=== PATIENT | female | born 1980 | race Caucasian/White ===

== ENCOUNTER 2016-12-10 08:56 | Emergency (ER) | payer SELFPAY ==
[2016-12-10 09:38] LABS: HEMATOCRIT 43.1 % (36.0-48.0); HEMOGLOBIN 15.3 g/dL (12.0-16.0); MEAN CORPUS. HGB CONCENTRATION 35.4 g/dL (32.0-36.0); MEAN CORPUSCULAR HEMOGLOBIN 32.5 pg (29.0-35.0); MEAN PLATELET VOLUME 7.2 fL (7.4-10.4); PLATELET COUNT 318 X 10^3uL (130-440); RED CELL DISTRIBUTION WIDTH 13.1 % (11.5-14.5); WHITE BLOOD COUNT 6.2 X 10^3uL (3.9-10.7)
[2016-12-10 09:39] LABS: BASOPHILS 0.7 % (0.0-2.0); EOSINOPHILS 1.9 % (0.0-6.0); EOSINOPHILS# 0.1 X 10^3uL (0.0-0.4); LYMPHOCYTES 37.6 % (20.0-40.0); LYMPHOCYTES# 2.3 X 10^3uL (0.8-3.8); MONOCYTES 7.4 % (2.0-10.0); MONOCYTES# 0.5 X 10^3uL (0.2-1.0); NEUTROPHILS 52.4 % (54.0-75.0); NEUTROPHILS# 3.2 X 10^3uL (2.6-6.7)
[2016-12-10 09:46] LABS: BLOOD UREA NITROGEN 8 mg/dL (7-17); CALCIUM 9.7 mg/dL (8.4-10.2); CHLORIDE 104 mmol/L (98-107); EST GLOMERULAR FILTRATION RATE > 60 mL/min; GLUCOSE 104 mg/dL (70-100); POTASSIUM 3.8 mmol/L (3.5-5.1); SODIUM 140 mmol/L (137-145)
[2016-12-10 09:55] LABS: TROPONIN I < 0.012 ng/mL (0.00-0.034)
[2016-12-10] MEDS ORDERED: KETOROLAC TROMETHAMINE 30 MG/ML VIAL ONE (11:27)
--- NOTE | 2016-12-10 11:48 | ER PHYSICIAN DOCUMENTATION ---
Physician Documentation [facility] Name:Tania Alexis Age:36 yrs Sex:Female :1980 Arrival Date:12/10/2016 Time:08:56 Bed3 Private MD:No PCP, Identified ED PhysicianHaroonNabeel Disposition: 12/10 11:31 Critical Care: not applicable. cd Disposition: 12/10/16 11:33 Discharged to Home/Self Care. Impression: Dysfunctional Uterine Bleeding (DUB), Dehydration, Hyperventilation Syndrome. - Condition is Good. - Discharge Instructions: DEHYDRATION (4y-Adult), DYSFUNCTIONAL UTERINE BLEEDING, Anguish - HYPERVENTILATION SYNDROME. - Medical Reconciliation form form. - Follow up: Jun Lafleur MD; When: 4- 6 days; Reason: Recheck today's complaints, Continuance of care. - Problem is new. - Symptoms are resolved. - Notes: Drink 2 - 3 quarts of water every day for 2 - 3 days. Take Ibuprofen 600mg by mouth every 6 hours with food for cramps. Take Trovera 10mg by mouth every day for 10 days to stop the vaginal bleeding Follow up with Dr. Jun Lafleur, PERMASTONE INSTALLER Physician, in 4 - 6 days. HPI: 09:00 This 36 yrs old Female presents to ER via Private Vehicle with complaints of cd Chest Pressure. 09:00 The patient or guardian reports chest pain that is located primarily in the substernal cd area. The pain does not radiate. There has been no movement of pain. Associated signs and symptoms: Pertinent positives: dizziness, nausea, shortness of breath, weakness and vaginal intermittent vaginal bleeding for one month., Pertinent negatives: abdominal pain, cough, lower extremity pain, lower extremity swelling, palpitations. The chest pain is described as aching. Duration: The patient or guardian reports multiple episodes, that wax and wane. Modifying factors: The symptoms are alleviated by nothing. the symptoms are aggravated by emotionally stressful situations. Severity of pain: At its worst the pain was mild in the emergency department the pain is unchanged. Risk factors for coronary artery disease include: This patient has a family history of coronary artery disease. 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 None - PMHx: Bicornute uterus; superficial blood clot; - PSHx: endometriosis ; laparoscopy x3 ; - Tetanus: unknown. - Ebola Screening: : Patient negative for fever greater than or equal to 101.5 degrees Fahrenheit, and additional compatible Ebola Virus Disease symptoms. Patient denies exposure to infectious person. Patient denies travel to an Ebola-affected area in the 21 days before illness onset. No symptoms or risks identified at this time. . - Immunization history: Flu Vaccine None. - Social history: Smoking status: Patient uses tobacco products, current every day smoker. ROS: 09:35 ENT: Negative for injury, pain, epistaxis and discharge. cd 09:35 Neck: Negative for injury, pain, stiffness and swelling. cd 09:35 Constitutional: Positive for poor PO intake, Negative for chills, fever. 09:35 Cardiovascular: Positive for chest pain, Negative for edema, palpitations. 09:35 Respiratory: Positive for shortness of breath, Negative for cough, dyspnea on exertion, hemoptysis, pleurisy. 09:35 Abdomen/GI: Positive for nausea, anorexia, Negative for abdominal pain, vomiting, diarrhea, hematemesis, black/tarry stool, rectal bleeding. 09:35 : Positive for vaginal bleeding, Negative for urinary symptoms, urinary frequency, pelvic pain, flank pain, burning with urination, foul smelling urine. 09:35 Psych: Positive for anxiety, hyperventilation on arrival to ED. 09:35 All other systems are negative. Exam: ENT: Nares patent. No nasal discharge, no septal abnormalities noted. Tympanic membranes are normal and external auditory canals are clear. Oropharynx with no redness, swelling, or masses, exudates, or evidence of obstruction, uvula midline. Mucous membranes dry Neck: Trachea midline, no thyromegaly or masses palpated, and no cervical lymphadenopathy. Supple, full range of motion without nuchal rigidity, or vertebral point tenderness. No Meningismus. Skin: Warm, dry with normal turgor. Normal color with no rashes, no lesions, and no evidence of cellulitis. MS/ Extremity: Pulses equal, no cyanosis. Neurovascular intact. Full, normal range of motion. 09:35 Neuro: Awake and alert, GCS 15, oriented to person, place, time, and situation. cd Cranial nerves II-XII grossly intact. Motor strength 5/5 in all extremities. Sensory grossly intact. Cerebellar exam normal. Normal gait. 09:35 Constitutional: The patient appears alert, awake, non-diaphoretic, non-toxic, well developed, well nourished, anxious, in obvious distress, mildly distressed. 09:35 Cardiovascular: Rate: normal, Rhythm: regular, Pulses: no pulse deficits are appreciated, Heart sounds: normal. 09:35 Respiratory: the patient does not display signs of respiratory distress, Respirations: shallow respirations, that is moderate, tachypnea, that is moderate, Breath sounds: are normal, clear throughout. 09:35 Abdomen/GI: Inspection: abdomen appears normal, Bowel sounds: normal, Palpation: abdomen is soft and non-tender. 09:35 Back: CVA tenderness, is absent. 09:35 Psych: Behavior/mood is pleasant, cooperative, anxious, Affect is flat. 09:35 Chest/axilla: Normal chest wall appearance and motion. Nontender with no deformity. cd No lesions are appreciated. 09:35 : Pelvic Exam: External exam: is normal, Speculum exam: scant bleeding, no cervicitis, os that is closed, no tissue in cervix is seen, no tissue in vagina is seen, bimanual exam reveals no cervical motion tenderness, normal sized uterus, no uterine tenderness, no adnexa tenderness or masses bilaterally, the nurse was present for the exam. Vital Signs: 08:56 BP 113 / 74; Pulse 80; Resp 26; Temp 97.8(O); Pulse Ox 96% on R/A; Weight 65.77 kg; cb Height 5 ft. 11 in. (180.34 cm); Pain 2/10; 09:31 Pulse 65 MON; Resp 17; Pulse Ox 94% ; cb 09:33 BP 96 / 81 (auto/); cb 10:00 BP 91 / 66 (auto/); cb 10:01 Pulse 72 MON; Resp 23; Pulse Ox 94% ; cb 10:36 Pulse 66 MON; Resp 14; Pulse Ox 93% ; cb 10:56 Pulse 64 MON; Resp 25; Pulse Ox 94% ; cb 11:02 BP 99 / 70; Pulse 72; Pulse Ox 97% on R/A; cb 08:56 Body Mass Index 20.22 (65.77 kg, 180.34 cm) cb [place] Coma Score: 09:35 Eye Response: spontaneous(4). Verbal Response: oriented(5). Motor Response: obeys cd commands(6). Total: 15. MDM: 09:00 ECG:. cd 09:05 Data interpreted: equipment man: rate is 74 beats/min, rhythm is normal sinus rhythm, cd regular, with no ectopy, Interpretation: normal rate, normal rhythm, Pulse oximetry: on room air is 99 %. Interpretation: Hyperventilation. 09:09 Patient medically screened. cd 09:20 Differential diagnosis: acute myocardial infarction, acute pericarditis, anxiety, cd coronary artery disease chest wall pain, cholecystitis, esophagitis, gastroesophageal reflux disease (GERD). 09:20 The patient was not given aspirin in the Emergency Department due to not indicated. cd Patient did not receive fibrinolytic due to not indicated. DEEPA Risk Score: TOTAL SCORE = 0. 11:30 Data reviewed: vital signs, nurses notes, old medical records, lab test result(s), EKG, cd radiologic studies, and as a result, I will discharge patient. 11:35 Counseling: I had a detailed discussion with the patient and/or guardian regarding: the cd historical points, exam findings, and any diagnostic results supporting the discharge/admit diagnosis, lab results, radiology results, the need for outpatient follow up, for a recheck, with the patient's primary care provider, to return to the emergency department if symptoms worsen or persist or if there are any questions or concerns that arise at home. Response to treatment: the patient's symptoms have markedly improved after treatment, the patient's condition has returned to base line, the patient is now symptom free, patient is well hydrated. and as a result, I will discharge patient. 12:28 EKG attached 12/10 09:40 Order name: CBC AUTO DIF, MDIF/RMOR IF IND; Complete Time: 10:22 EDKS 12/10 10:12 Interpretation: Normal. 12/10 09:54 Order name: DDIMER; Complete Time: 10:22 EDKS 12/10 10:12 Interpretation: Normal. 12/10 09:56 Order name: BASIC METABOLIC PANEL; Complete Time: 10:22 EDKS 12/10 10:12 Interpretation: Normal. 12/10 09:56 Order name: MAGNESIUM; Complete Time: 10:22 EDKS 12/10 10:12 Interpretation: Normal. 12/10 09:56 Order name: TROPONIN I; Complete Time: 10:22 EDMS 12/10 10:12 Interpretation: Normal. 12/10 10:13 Order name: HCG, SERUM; Complete Time: 10:22 EDMS 12/10 10:22 Interpretation: Normal. 12/10 16:58 Order name: CHEST; SINGLE VIEW [id number]; Complete Time: 06:35 EDMS 07 06:35 Interpretation: Normal. 12/10 09:13 Order name: 12-lead EKG; Complete Time: 09:22 cd 12/10 09:13 Order name: Iv Saline Lock; Complete Time: 09:22 cd 12/10 09:13 Order name: Place Patient On Monitor; Complete Time: :21 cd 12/10 09:13 Order name: Pulse Ox Continuous; Complete Time: : cd EC:00 Rate is 68 beats/min. Rhythm is regular. QRS [place] is Normal. [place] interval is normal. QRS cd interval is normal. QT interval is normal. No Q waves. T waves are Normal. No ST changes noted. Clinical impression: Normal ECG and No evidence of ischemia. Interpreted by me. Dispensed Medications: 09:20 Drug: NS 0.9% 1000 ml; Route: IV; Rate: bolus; Site: left antecubital; lp 10:25 Follow up: Response: No adverse reaction; No change in condition; IV Status: Completed lp infusion; IV Intake: 1000ml 10:26 Drug: NS 0.9% 1000 ml; Route: IV; Rate: bolus; Site: left antecubital; lp 11:11 Follow up: Response: No adverse reaction; IV Status: Completed infusion; IV Intake: lp 1000ml 11:12 Drug: Toradol 30 mg; Route: IVP; Site: left antecubital; cb 11:49 Follow up: Response: Pain is decreased cb Point of Care Testing: Urine Dip: 10:24 pH: 7.0; ; Specific [place]: 1.015; Ketones: Negative; Glucose: Negative; Protein: rh Negative; Leukocytes: Negative; Nitrite: Negative ; Blood: Moderate (++); Bilirubin: Negative ; Urobilinogen: Normal Signatures: Maria Del Rosario Díaz RN RN cb Pavlish, Lena, RN RN lp Daley, Chris, MD MD cd
--- NOTE | 2016-12-10 11:48 | ER NURSING DOCUMENTATION ---
Nurse's Notes [facility] Name:Tania Alexis Age:36 yrs Sex:Female :1980 Arrival Date:12/10/2016 Time:08:56 Bed3 Private MD:No PCP, Identified Diagnosis:Dysfunctional Uterine Bleeding (DUB);Dehydration;Hyperventilation Syndrome Presentation: 12/10 09:01 Presenting complaint: Patient states: chest tightness with SOB for one week. Transition cb of care: Home. AIR CAT ACTIVATION no other No evidence of IA. Asprin Given n/a. 09:01 Method Of Arrival: Private Vehicle cb 09:01 Acuity: KATYA 3 cb Triage Assessment: 09:01 General: Appears distressed, well groomed, Behavior is cooperative. cb 09:01 Pain: Complains of pain in chest Pain currently is 2 out of 10 on a pain scale. At cb worst was 5 out of 10 on a pain scale. EENT: No deficits noted. Neuro: Level of Consciousness is awake, alert, Oriented to person, place, time, event. Cardiovascular: Rhythm is sinus rhythm. Respiratory: Airway is patent Trachea midline Respiratory effort is labored, Respiratory pattern is regular, symmetrical. GI: Reports anorexia, constipation. : No deficits noted. Derm: No deficits noted. Musculoskeletal: No deficits noted. 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 None - PMHx: Bicornute uterus; superficial blood clot; - PSHx: endometriosis ; laparoscopy x3 ; - Tetanus: unknown. - Ebola Screening: : Patient negative for fever greater than or equal to 101.5 degrees Fahrenheit, and additional compatible Ebola Virus Disease symptoms. Patient denies exposure to infectious person. Patient denies travel to an Ebola-affected area in the 21 days before illness onset. No symptoms or risks identified at this time. . - Immunization history: Flu Vaccine None. - Social history: Smoking status: Patient uses tobacco products, current every day smoker. Screenin:51 Infectious Disease Risk None. Abuse screen: Denies threats or abuse. Denies injuries cb from another. Nutritional screening: No deficits noted. Assessment: 09:01 Pain: Pain does not radiate. cb 09:51 Pain: Complains of pain in chest Pain currently is 2 out of 10 on a pain scale. At cb worst was 5 out of 10 on a pain scale. Pain began one week. Vital Signs: 08:56 BP 113 / 74; Pulse 80; Resp 26; Temp 97.8(O); Pulse Ox 96% on R/A; Weight 65.77 kg; cb Height 5 ft. 11 in. (180.34 cm); Pain 2/10; 09:31 Pulse 65 MON; Resp 17; Pulse Ox 94% ; cb 09:33 BP 96 / 81 (auto/); cb 10:00 BP 91 / 66 (auto/); cb 10:01 Pulse 72 MON; Resp 23; Pulse Ox 94% ; cb 10:36 Pulse 66 MON; Resp 14; Pulse Ox 93% ; cb 10:56 Pulse 64 MON; Resp 25; Pulse Ox 94% ; cb 11:02 BP 99 / 70; Pulse 72; Pulse Ox 97% on R/A; cb 08:56 Body Mass Index 20.22 (65.77 kg, 180.34 cm) cb [place] Coma Score: 09:35 Eye Response: spontaneous(4). Verbal Response: oriented(5). Motor Response: obeys cd commands(6). Total: 15. ED Course: 08:56 Patient arrived in ED. ds 08:57 No PCP, Identified is Private Physician. ds 08:58 EKG done. (by ED staff). Reviewed by Nabeel Patiño MD. cb 09:00 Maria Del Rosario Díaz, RN is Primary Nurse. cb 09:01 Oxygen O2 via Not administered. cb 09:03 Triage completed. cb 09:09 Nabeel Patiño MD is Attending Physician. cd 09:10 Inserted peripheral IV: 18 gauge in left antecubital area and blood collected. cb 09:10 Labs drawn. (by ED staff). Sent per order to lab. cb 09:20 Port Xray Completed. hz 09:52 Valuables Remains with patient Patient has correct armband on for positive cb identification. Placed in gown. Bed in low position. Call light in reach. Side rails up X 1. Adult w/ patient. vehicle monitor technician on. Pulse ox on. NIBP on. Warm blanket given. Diet: Patient is NPO. 10:15 Assisted to bathroom. cb 11:30 Assist Provider Assist provider with pelvic exam: Set up pelvic tray. Performed by yudith Patiño MD Patient tolerated. 11:32 Jun Lafleur MD is Referral Physician. cd 12:28 EKG attached cb Administered Medications: 09:20 Drug: NS 0.9% 1000 ml; Route: IV; Rate: bolus; Site: left antecubital; lp 10:25 Follow up: Response: No adverse reaction; No change in condition; IV Status: Completed lp infusion; IV Intake: 1000ml 10:26 Drug: NS 0.9% 1000 ml; Route: IV; Rate: bolus; Site: left antecubital; lp 11:11 Follow up: Response: No adverse reaction; IV Status: Completed infusion; IV Intake: lp 1000ml 11:12 Drug: Toradol 30 mg; Route: IVP; Site: left antecubital; cb 11:49 Follow up: Response: Pain is decreased cb Point of Care Testing: Urine Dip: 10:24 pH: 7.0; ; Specific [place]: 1.015; Ketones: Negative; Glucose: Negative; Protein: rh Negative; Leukocytes: Negative; Nitrite: Negative ; Blood: Moderate (++); Bilirubin: Negative ; Urobilinogen: Normal Intake: 10:25 IV: 1000ml; Total: 1000ml. lp 11:11 IV: 1000ml; Total: 2000ml. lp Outcome: 11:33 Discharge ordered by . cd 11:45 Discharged to home ambulatory, with family. cb 11:45 Condition: stable 11:45 Discharge Assessment: Patient awake, alert and oriented x 3. No cognitive and/or functional deficits noted. Patient verbalized understanding of disposition instructions. 11:45 Discharge instructions given to patient, Instructed on discharge instructions, follow up and referral plans. medication usage, Demonstrated understanding of instructions, medications, Prescriptions given X 1. 11:45 IV D/Carl 11:47 Patient left the ED. cb 12/11 14:16 Discharge F/U Call: Unable to reach: non-working number st Signatures: Maria Del Rosario Díaz RN Any David cb, RN RN st Pavlish, Lena, RN RN lp Srot, Adela, Reg Reg Nabeel Arreguin MD MD cd Hollie Davis pm1 Evette Almaraz Cee Cardona
--- NOTE | 2016-12-10 15:24 | RADIOLOGY REPORT ---
A limited single portable view of the chest demonstrates the heart, vessels and lungs to be unremarkable. IMPRESSION: Unremarkable limited single portable view of the chest. MTDD
== END 2016-12-10 11:48 | disposition home or self-care (01) ==
LOC: ER 08:56
DX: N93.8 Other specified abnormal uterine and vaginal bleeding (principal); E86.0 Dehydration; F45.8 Other somatoform disorders; R07.9 Chest pain, unspecified; R06.02 Shortness of breath; R11.0 Nausea; F17.210 Nicotine dependence, cigarettes, uncomplicated
CPT/HCPCS: 71010; 80048; 83735; 84484; 84703; 85025; 85379; 93005; 96361; 96374; 99285; J1885